=== PATIENT | male | born 1965 | race Caucasian/White ===

== ENCOUNTER 2016-11-25 13:56 | Emergency (ER) | payer OTHER ==
[~2016-11-25] VITALS: Ht 185.4 cm; Wt 109.1 kg
[2016-11-25 14:07] VITALS: BP 136/112
[2016-11-25] MEDS ORDERED: GELATIN SPONGE SIZE 12-7MM SPONGE. ONE (14:23)
[2016-11-25] MEDS ORDERED: GELATIN SPONGE SIZE 100. TP ONE (14:45)
[2016-11-25] MEDS ORDERED: CEPH-264 PO (15:06)
--- NOTE | 2016-11-25 15:06 | PHYS DOC ---
Past History Past Medical History: No Pertinent History Past Surgical History: No Surgical History Alcohol Use: Occasionally Drug Use: None Adult General Chief Complaint Chief Complaint: LACERATION/AVULSION HPI HPI Patient is a 51 year old male who presents with fingertip amputation. The patient states just prior to arrival he cut off the tip of his left small finger using an apple coring device. He denies other injuries. He is right handed. Tetanus up to date. Review of Systems Review of Systems Constitutional: Denies fever Respiratory: Denies cough or shortness of breath Cardiovascular: Denies chest pain GI: Denies abdominal pain Musculoskeletal: Reports fingertip injury Integument: Reports fingertip amputation Neurologic: Denies headache Current Medications Current Medications Current Medications Medications (Trade) Dose Ordered Sig/Willam Start Time Stop Time Status Last Admin Dose Admin Gelatin (Gelfoam Size 12-7mm) 1 each STK-MED ONCE 11/25/16 14:23 11/25/16 14:24 DC Gelatin (Gelfoam Size 100) 1 each 1X ONCE 11/25/16 14:45 11/25/16 14:46 DC 11/25/16 14:35 1 EACH Allergies Allergies Allergies Coded Allergies Type Severity Reaction Last Updated Verified codeine Allergy Unknown 11/25/16 Yes Physical Exam Physical Exam Constitutional: Well developed, well nourished, no acute distress, non-toxic appearance. HENT: Normocephalic, atraumatic, bilateral external ears normal, oropharynx moist, nose normal. Eyes: conjunctiva normal, no discharge. Cardiovascular: no edema. Lungs & Thorax: no respiratory distress. Abdomen: nondistended. Skin: fingertip amputation as below Extremities: left small finger with amputation over medial aspect of the fingertip just adjacent to the nail, approx 1 cm diameter area of absent tissue , full thickness of skin no exposed bone, no fingernail injury or subungual hematoma. minimal ongoing bleeding, intact ROM at DIP & PIP, cap refill < 2 sec , sensation intact to remaining fingertip. Neurologic: Alert and oriented X 3 Current Patient Data Vital Signs Vital Signs Date Time Temp Pulse Resp B/P (MAP) Pulse Ox O2 Delivery O2 Flow Rate FiO2 11/25/16 14:07 97.8 72 20 96 Room Air EKG EKG [] Radiology/Procedures Radiology/Procedures [] Course & Med Decision Making Course & Med Decision Making Pertinent Labs and Imaging studies reviewed. (See chart for details) Patient presents with fingertip injury. Tetanus up to date. RN irrigated, applied gel foam & tube gauze dressing. Will give keflex for prophylaxis. Recommend wound care, follow up with PCP or orthopedics in 2 days for wound check, come back for signs of infection or otherwise worsening condition. Discharged home in stable condition. [] Dragon Disclaimer Dragon Disclaimer This chart was dictated in whole or in part using Voice Recognition software in a busy, high-work load, and often noisy Emergency Department environment. It may contain unintended and wholly unrecognized errors or omissions. Departure Departure: Impression: Primary Impression: Fingertip amputation Disposition: HOME, SELF-CARE Condition: STABLE Referrals: EMMY RUSSO (PCP) Patient Instructions: Fingertip Injuries and Amputations Additional Instructions: You were seen in the emergency department today for fingertip amputation. Please leave dressing in place for 48 hours, then you can remove. After that, apply neosporin twice daily & keep covered with gauze dressing. Take antibiotics to prevent infection. Follow up with primary care physician in 2 days for wound check. Come back for fever, hot/red/swollen skin, pus draining from the wound, otherwise worsening condition. Scripts Cephalexin (KEFLEX) 500 Mg Capsule 1 CAP PO BID, #14 CAP Prov: POOJA LAYNE MD 11/25/16 POOJA LAYNE MD Nov 25, 2016 15:06
[2016-11-25] MEDS ORDERED: CEPHALEXIN 500 MG CAPSULE PO ONE (15:45)
== END 2016-11-25 15:42 | disposition home or self-care (01) ==
LOC: ER 13:56
DX: S68.127A Partial traumatic metacarpophalangeal amputation of left little finger, initial encounter (principal); Z88.5 Allergy status to narcotic agent; W45.8XXA Other foreign body or object entering through skin, initial encounter; Y93.89 Activity, other specified; Y92.89 Other specified places as the place of occurrence of the external cause; Y99.8 Other external cause status
CPT/HCPCS: 99283